=== PATIENT | female | born 1960 ===

== ENCOUNTER 2016-11-05 18:07 | Inpatient (IN) ==
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
[2016-11-05] MEDS ORDERED: ONDANSETRON 4 MG/2 ML VIAL IV PRN (20:22)
[2016-11-05] MEDS ORDERED: ACETAMINOPHEN 325 MG TABLET PO PRN (20:22)
[2016-11-05] MEDS ORDERED: ALBUTEROL 2.5 MG/3 ML NEB RESP TX PRN (20:22)
[2016-11-05] MEDS ORDERED: NIFEdipine 10 MG CAPSULE PO PRN (20:22)
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
[2016-11-05] MEDS: FUROSEMIDE 100 MG/10 ML VIAL IV SCH (22:47)
[2016-11-05] MEDS: CARVEDILOL 12.5 MG TABLET PO SCH (22:47)
[2016-11-06 05:58] LABS: Basophils % 0.4 % (0.0-0.8); Eosinophils # 0.7 10*3/uL (0.0-0.87); Eosinophils % 10.4 % (0.00-10.9); Hematocrit 22.5 VOL% (35.7-47.0); Hemoglobin 7.4 GM/DL (12.0-16.0); Immature Granulocytes % 0.4 %; Immature Granulocytes Absolute 0.03 #; Lymphocytes # 0.9 10*3/uL (1.4-4.0); Lymphocytes % 13.8 % (21.3-54.2); Mean Corpuscular HGB Conc 32.9 GM/DL (32-36); Mean Corpuscular Hemoglobin 30 PG (27-34); Mean Corpuscular Volume 91.1 FL (87-102); Monocytes # 0.4 10*3/uL (0.11-0.8); Monocytes % 6.1 % (1.7-12.7); Neutrophils # 4.7 10*3/uL (1.4-7.4); Neutrophils % 68.9 % (38.7-73.9); Platelet Count 236 T/CUMM (130-400); Red Blood Count 2.47 MC/CUMM (3.8-5.5); White Blood Count 6.8 T/CUMM (4-12)
[2016-11-06 06:33] LABS: Osmolality,Calculated 296.7 MOS/KG (273-304); Potassium 3.9 MMOL/L (3.5-5.1); Troponin I Only 0.026 NG/ML (0.00-0.045)
--- NOTE | 2016-11-06 07:05 | XRay Report ---
XR chest 1V portable Indication: Dyspnea Comparison: 05 November 2016 Findings: The heart and mediastinum are normal in size and configuration. The pulmonary vascularity is normal in caliber. Right midlung and left lower lung pulmonary densities are present similar to previous exam. No other lung infiltrates, effusions, pneumothorax or other abnormality is demonstrated. Impression: No significant changes. PROCEDURE INTERPRETED AT [facility] DEPARTMENT OF RADIOLOGY Final Report Signed by: Dr. Darnell Rodriguez
--- NOTE | 2016-11-06 07:17 | EKG Report ---
Stationary ECG Study [facility] Test Date: 11/06/2016 7:18:31 AM Pat Name: CONRAD SYED Department: Room: 287 Gender: F Supervisor Webbing: GODWIN : 1960 Requested by: Carl Boyd Order Number: [id number] Reading MD: DOMENICA ERNST Intervals Topmost Rate: 73 P: 24 NV: 154 QRS: 1 QRSD: 86 T: 70 QT: 387 QTc: 412 Interpretive Statements SINUS RHYTHM INCOMPLETE RBBB Electronically Signed On 11-06-16 13:01:35 CDT by DOMENICA ERNST [email or web address]
[2016-11-06] MEDS: ENOXAPARIN 30 MG/0.3 ML SYRINGE SUBCUT SCH (08:54)
[2016-11-06] MEDS: PANTOPRAZOLE 40 MG TABLET PO SCH (08:54)
[2016-11-06] MEDS: FUROSEMIDE 100 MG/10 ML VIAL IV SCH ×2 (08:54→17:04)
[2016-11-06] MEDS: amLODIPine 10 MG TABLET PO SCH (08:54)
[2016-11-06] MEDS: INSULIN LISPRO 100 UNIT/ML SUBCUT SCH ×3 (08:54→17:03)
[2016-11-06] MEDS: CARVEDILOL 12.5 MG TABLET PO SCH ×2 (08:54→17:04)
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
[2016-11-06 13:56] LABS: Troponin I Only 0.017 NG/ML (0.00-0.045)
--- NOTE | 2016-11-06 14:41 | Hospitalist Progress Note ---
Assessment and Plan (1) Acute exacerbation of CHF (congestive heart failure) Status: Acute Assessment and plan: Follow-up echo. Cardiology consult noted. Continue Lasix. Nephrology consult pending. Current Visit: No Qualifiers: Congestive heart failure type: diastolic Qualified Code(s): I50.33 - Acute on chronic diastolic (congestive) heart failure (2) Diabetes Status: Chronic Current Visit: Yes Qualifiers: Diabetes mellitus type: type 2 (3) Anemia Status: Chronic Current Visit: No Qualifiers: Anemia type: due to chronic kidney disease Chronic kidney disease stage: stage 3 (moderate) Qualified Code(s): N18.3 - Chronic kidney disease, stage 3 (moderate); D63.1 - Anemia in chronic kidney disease (4) Hypertension Status: Chronic Current Visit: Yes Qualifiers: Hypertension type: essential hypertension Qualified Code(s): I10 - Essential (primary) hypertension (5) Chronic kidney disease (CKD) Status: Acute Assessment and plan: Followed by Dr. Guardado and Dr. Simpson. Nephrotoxic medications are being held with the exception of Lasix. Nephrology consult placed Current Visit: Yes Qualifiers: Chronic kidney disease stage: stage 4 (severe) Qualified Code(s): N18.4 - Chronic kidney disease, stage 4 (severe) (6) Hyperlipidemia Status: Chronic Assessment and plan: Lipid panel in a.m. Current Visit: Yes Qualifiers: Hyperlipidemia type: unspecified Qualified Code(s): E78.5 - Hyperlipidemia , unspecified Hospitalist: Subjective Interval history: Patient seen and examined. No acute events overnight. Case discussed with nursing staff. Labs reviewed. Hightower catheter discontinued. Patient requests to be DNR CODE STATUS. Cardiology consult reviewed. Echo pending. Exam - Constitutional Vitals: Period Temp Pulse Resp BP Sys/Luu Pulse Ox Last 24 Hr 97.1 F-98.9 F 71-82 18-20 106-191/72-91 91-99 Exam: Constitutional System: Mild distress. No tremulousness. Head: Normocephalic, atraumatic. Ears, Nose and Throat System: No pain or tenderness. No epistaxis or discharge Eyes System: Pupils equal, round, and reactive. Extraocular muscles intact. Neck: Supple, without adenopathy, No jugular venous distention. Respiratory System: Chest clear to auscultation. Cardiovascular System: Heart with regular rate and rhythm. No murmur. GI System: Abdomen soft, nontender. Normo active bowel sounds present. Musculoskeletal System: limbs with no pedal edema. Full distal pulses. Neurological System: No discernable sensory deficit. No aphasia Psychiatric System: Conversation is rational Results - Labs CBC & BMP: 11/06/16 05:17 11/06/16 05:17 Lab Results: I have reviewed the past 24 hour labs
[2016-11-06] MEDS: hydrALAZINE 25 MG TABLET PO SCH ×2 (14:42→21:47)
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
[2016-11-06] MEDS ORDERED: SIMVASTATIN 20 MG TABLET PO SCH (21:00)
--- NOTE | 2016-11-06 21:21 | ECHO Report ---
Betsy Talley Exam Date: 11/06/2016 10:05 Referring Physician: Technologist: ruba Boyd ARDMS, RVT Age: 55 Ht (in): 63 Wt (lb): 194 Gender: F Exam Location: [facility] Echo Indications: Heart failure, unspecified, Essential (primary) hypertension, Anemia, Pneumonia, Chronic kidney disease, unspecified BP: 174 / 77 HR: 71 Rhythm: Sinus Technical Quality: Good IMPRESSIONS Normal left ventricular cavity size. Left ventricular ejection fraction is estimated at 60 % . Grade II/IV diastolic dysfunction, moderately elevated filling pressures. The right ventricle is normal in size and function. The right atrium is mildly enlarged. The left atrium is mildly enlarged. Morphologically normal mitral valve. Trace mitral valve regurgitation. Aortic valve sclerosis. Trace aortic valve regurgitation. Severe tricuspid valve regurgitation. PAP60 mmHg. Trace pulmonary valve regurgitation. Normal pericardium without effusion. Normal ascending aorta dimension. MEASUREMENTS (Male / Female) Normal Values 2D ECHO LV Diastolic Diameter PLAX 4.8 cm 4.2 - 5.9 / 3.9 - 5.3 cm LV Systolic Diameter PLAX 3.5 cm LV Fractional Shortening PLAX 28.8 % IVS Diastolic Thickness 1.3 cm 0.6 - 1.0 / 0.6 - 0.9 cm LVPW Diastolic Thickness 1.1 cm 0.6 - 1.0 / 0.6 - 0.9 cm RV Internal Dim ED PLAX 2.8 cm Aortic Root Diameter 3.3 cm LA Systolic Diameter LX 4.2 cm 3.0 - 4.0 / 2.7 - 3.8 cm DOPPLER TR Peak Velocity 349.0 cm/s TR Peak Gradient 48.7 mmHg FINDINGS Left Ventricle Normal left ventricular cavity size. Mild left ventricular hypertrophy. Left ventricular ejection fraction is estimated at 60 % .Grade II/IV diastolic dysfunction, moderately elevated filling pressures. Right Ventricle The right ventricle is normal in size and function. Right Atrium The right atrium is mildly enlarged. Left Atrium The left atrium is mildly enlarged. Mitral Valve Morphologically normal mitral valve. Trace mitral valve regurgitation. Aortic Valve Aortic valve sclerosis. Trace aortic valve regurgitation. Tricuspid Valve Morphologically normal tricuspid valve. Severe tricuspid valve regurgitation. PAP60 mmHg. Pulmonic Valve Morphologically normal pulmonic valve. Trace pulmonary valve regurgitation. Pericardium Normal pericardium without effusion. Aorta Normal ascending aorta dimension. Almas Jd (Electronically Signed) Final Date: 06 November 2016 21:20
[2016-11-06 21:41] LABS: Troponin I Only 0.025 NG/ML (0.00-0.045)
[2016-11-07 05:17] LABS: Basophils % 0.3 % (0.0-0.8); Eosinophils # 0.7 10*3/uL (0.0-0.87); Eosinophils % 9.4 % (0.00-10.9); Hematocrit 22.2 VOL% (35.7-47.0); Hemoglobin 7.3 GM/DL (12.0-16.0); Immature Granulocytes % 0.4 %; Immature Granulocytes Absolute 0.03 #; Lymphocytes # 1.2 10*3/uL (1.4-4.0); Lymphocytes % 16.5 % (21.3-54.2); Mean Corpuscular HGB Conc 32.9 GM/DL (32-36); Mean Corpuscular Hemoglobin 30 PG (27-34); Mean Corpuscular Volume 90.6 FL (87-102); Mean Platelet Volume 10.1 FL (9.6-12.0); Monocytes # 0.5 10*3/uL (0.11-0.8); Monocytes % 6.3 % (1.7-12.7); Neutrophils # 4.8 10*3/uL (1.4-7.4); Neutrophils % 67.1 % (38.7-73.9); Platelet Count 239 T/CUMM (130-400); Red Blood Count 2.45 MC/CUMM (3.8-5.5); Red Cell Distribution Width 14.7 % (9.3-17.3); White Blood Count 7.1 T/CUMM (4-12)
[2016-11-07 05:44] LABS: Calcium 7.9 MG/DL (8.5-10.1); Magnesium 1.9 MG/DL (1.8-2.4); Osmolality,Calculated 298.1 MOS/KG (273-304); Potassium 3.5 MMOL/L (3.5-5.1)
[2016-11-07 05:47] LABS: Risk Ratio 3.22; VLDL CHOLESTEROL 39.6 MG/DL
--- NOTE | 2016-11-07 07:13 | EKG Report ---
Stationary ECG Study [facility] Test Date: 11/07/2016 7:13:53 AM Pat Name: CONRAD SYED Department: Room: 287 Gender: F Hand Sewer: GODWIN : 1960 Requested by: Rukhsana Murry Order Number: [id number] Reading MD: DOMENICA ERNST Intervals [place] Rate: 71 P: 72 MT: 143 QRS: 68 QRSD: 90 T: 73 QT: 404 QTc: 426 Interpretive Statements SINUS RHYTHM POSSIBLE RIGHT VENTRICULAR CONDUCTION DELAY Electronically Signed On 11-09-16 14:06:51 CDT by DOMENICA ERNST [email or web address]
[2016-11-07] MEDS: ENOXAPARIN 30 MG/0.3 ML SYRINGE SUBCUT SCH (08:42)
[2016-11-07] MEDS: PANTOPRAZOLE 40 MG TABLET PO SCH (08:42)
[2016-11-07] MEDS: INSULIN LISPRO 100 UNIT/ML SUBCUT SCH ×2 (08:42→11:59)
[2016-11-07] MEDS: hydrALAZINE 25 MG TABLET PO SCH (08:42)
[2016-11-07] MEDS: CARVEDILOL 12.5 MG TABLET PO SCH (08:42)
[2016-11-07] MEDS: amLODIPine 10 MG TABLET PO SCH (08:42)
[2016-11-07] MEDS: FUROSEMIDE 100 MG/10 ML VIAL IV SCH (09:35)
[2016-11-07 12:09] VITALS: BP 149/74
--- NOTE | 2016-11-07 12:10 | Cardiology Progress Note ---
<Rukhsana Murry - Last Filed: 11/07/16 11:57> Assessment and Plan (1) Acute exacerbation of CHF (congestive heart failure) Status: Acute Assessment and plan: See plan of care listed below. Current Visit: No Qualifiers: Congestive heart failure type: diastolic Qualified Code(s): I50.33 - Acute on chronic diastolic (congestive) heart failure (2) Anemia Status: Chronic Assessment and plan: See plan of care listed below. Current Visit: No Qualifiers: Anemia type: due to chronic kidney disease Chronic kidney disease stage: stage 3 (moderate) Qualified Code(s): N18.3 - Chronic kidney disease, stage 3 (moderate); D63.1 - Anemia in chronic kidney disease (3) Chest pain Status: Acute Assessment and plan: See plan of care listed below. Current Visit: Yes (4) Constipation Status: Chronic Assessment and plan: See plan of care listed below. Current Visit: No (5) Diabetes Status: Chronic Assessment and plan: See plan of care listed below. Current Visit: Yes Qualifiers: Diabetes mellitus type: type 2 (6) Hypertension Status: Chronic Assessment and plan: See plan of care listed below. Current Visit: Yes Qualifiers: Hypertension type: essential hypertension Qualified Code(s): I10 - Essential (primary) hypertension (7) Chronic kidney disease (CKD) Status: Acute Assessment and plan: See plan of care listed below. Current Visit: Yes Qualifiers: Chronic kidney disease stage: stage 4 (severe) Qualified Code(s): N18.4 - Chronic kidney disease, stage 4 (severe) (8) Hyperlipidemia Status: Chronic Assessment and plan: See plan of care listed below. 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 Miles SUMMARY Ms. Talley is a 55 year old female without known history of coronary artery disease, not routinely followed by cardiology. Patient has cardiac risk factors significant for hypertension, hyperlipidemia, diabetes, obesity and sedentary lifestyle. She is a history of congestive heart failure, obstructive sleep apnea(untreated), chronic kidney disease (followed by Dr. Simpson) and chronic anemia. Patient's most recent echocardiogram was performed January 2016. At that time, she had normal ejection fraction of 60% with grade 2 diastolic dysfunction. PAP 45. Patient underwent cardiac stress testing February 2011 which was normal without good evidence to suggest myocardial scar or ischemia. EF 54% with normal regional wall motion. Patient was last seen by cardiology January 2016 for atypical chest pain. She was scheduled for outpatient stress testing. However, she did not show for this procedure. Patient was transferred from [facility] for further evaluation of dyspnea on exertion and elevated BNP. She has been admitted under hospitalist service and is being treated for acute congestive heart failure. Echocardiogram revealed left ventricular ejection fraction of 60%. Grade 2 diastolic dysfunction. Severe TR, PAP 60 mmHg. NOVEMBER 07, 2016 Patient was seen and examined on the telemetry unit. She has greatly improved overnight after being diuresed. Denies complaints of chest pain, heaviness and tightness. According to her I's and O's, her weight is unchanged. We will continue to diurese heavily. Monitor her renal function closely as she has stage IV chronic kidney disease. Creatinine today 4.5. The pressure continues to be suboptimally controlled. Will adjust her medications. Echocardiogram revealed left ventricular ejection fraction of 60%. Grade 2 diastolic dysfunction. Severe TR, PAP 60 mmHg. Labs have been reviewed. I will discuss with Dr. Miles and await his additional recommendations. ASSESSMENT/PLAN 1. ACUTE CONGESTIVE HEART FAILURE, DIASTOLIC DYSFUNCTION - Multifactorial to include diastolic dysfunction and chronic kidney disease. Echocardiogram revealed left ventricular ejection fraction of 60%. Grade 2 diastolic dysfunction. Severe TR, PAP 60 mmHg. We will continue with IV diuresis. Diuresing well. Weight is unchanged. Strict I's and O's and daily weights. Will monitor renal function closely while diuresing. Renal is following. Patient without anginal symptoms. Troponin has been negative 3. I will discuss with Dr. Miles and await his additional recommendations. 2. HYPERTENSION - Patient's blood pressure continues to be suboptimally controlled. Will adjust her medications. 3. HYPERLIPIDEMIA - Will reinitiate her lipid-lowering agent. Lipid panel reviewed. 4. DIABETES - Management per attending. 5. CHRONIC KIDNEY DISEASE, STAGE IV - Creatinine 4.5. Patient was taken ARB at home. This is been discontinued. Dr. Simpson has been consulted. Appreciate his recommendations. 6. CHRONIC ANEMIA - Most likely secondary to patient's chronic kidney disease. H&H is holding at 7.3 and 22.2. May benefit from blood transmission. No overt bleeding. Stool samples pending. Will defer management of this to attending/Renal. 7. TAD - Dr. Cortez following. Exam (Progress Note) - Constitutional Vitals: Period Temp Pulse Resp BP Sys/Luu Pulse Ox Last 24 Hr 97.4 F-98.7 F 69-79 16-20 108-191/53-88 94-98 Exam: General: Appears well with no apparent distress. Pleasant and cooperative. Appears comfortable. HEENT: PERRL, normocephalic, atraumatic. Mucous membranes moist. No jaundice noted. Conjunctiva moist and clear, sclerae anicteric Neck: No JVD/HJR, no thyromegaly or lymphadenopathy noted. No carotid bruit appreciated Cardiac: Regular rate and rhythm. Soft systolic murmur. Lungs: Clear throughout. Oxygen via nasal cannula. Abdomen: Soft, bowel sounds normoactive. Nontender. No abdominal bruit or thrill noted. No masses noted. Extremities: No clubbing, cyanosis noted. Trace edema to lower extremities. Upper extremity pulses 2+. Lower extremity pulses 2+. Capillary refill less than 3 seconds. Skin: No unusual lesions or rashes. No skin breakdown appreciated. Neuro: Awake, alert and oriented 3. Moves all extremities well without hemiparesis or paralysis. No essential tremor is appreciated. Result/EKG - Labs CBC & BMP: 11/07/16 04:52 11/07/16 04:53 Lab Results: I have reviewed the past 24 hour labs Labs: Laboratory Results - last 24 hr 11/06/16 11/06/16 11/06/16 13:10 15:32 19:50 WBC RBC Hgb Hct MCV MCH MCHC RDW Plt Count MPV Neut % (Auto) Lymph % (Auto) [place] % (Auto) Eos % (Auto) Baso % (Auto) Neut # (Auto) Lymph # (Auto) [place] # (Auto) Eos # (Auto) Baso # (Auto) Immature Gran % Nucleated RBC % Immature Gran # Nucleated RBCs # Sodium Potassium Chloride Carbon Dioxide Anion Gap BUN Creatinine GFR Calculation BUN/Creatinine Ratio Glucose POC Glucose 197 H 214 H Calculated Osmolality Calcium Magnesium Total Creatine Kinase 125 CK-MB (CK-2) 2.3 Troponin I 0.017 Triglycerides Cholesterol LDL Cholesterol VLDL Cholesterol HDL Cholesterol Heart Disease Risk Ratio 11/06/16 11/07/16 11/07/16 21:05 04:52 04:52 WBC 7.1 RBC 2.45 L Hgb 7.3 L Hct 22.2 L MCV 90.6 MCH 30 MCHC 32.9 RDW 14.7 Plt Count 239 MPV 10.1 Neut % (Auto) 67.1 Lymph % (Auto) 16.5 L [place] % (Auto) 6.3 Eos % (Auto) 9.4 Baso % (Auto) 0.3 Neut # (Auto) 4.8 Lymph # (Auto) 1.2 L [place] # (Auto) 0.5 Eos # (Auto) 0.7 Baso # (Auto) 0.0 Immature Gran % 0.4 Nucleated RBC % 0.0 Immature Gran # 0.03 Nucleated RBCs # 0.00 Sodium Potassium Chloride Carbon Dioxide Anion Gap BUN Creatinine GFR Calculation BUN/Creatinine Ratio Glucose POC Glucose Calculated Osmolality Calcium Magnesium Total Creatine Kinase 116 CK-MB (CK-2) 1.9 Troponin I 0.025 Triglycerides 198 H Cholesterol 148 LDL Cholesterol 79.0 VLDL Cholesterol 39.6 HDL Cholesterol 46 Heart Disease Risk Ratio 3.22 11/07/16 11/07/16 04:53 07:34 WBC RBC Hgb Hct MCV MCH MCHC RDW Plt Count MPV Neut % (Auto) Lymph % (Auto) [place] % (Auto) Eos % (Auto) Baso % (Auto) Neut # (Auto) Lymph # (Auto) [place] # (Auto) Eos # (Auto) Baso # (Auto) Immature Gran % Nucleated RBC % Immature Gran # Nucleated RBCs # Sodium 142 Potassium 3.5 Chloride 107 Carbon Dioxide 24 Anion Gap 14.5 BUN 46 H Creatinine 4.50 H GFR Calculation 11 BUN/Creatinine Ratio 10.00 Glucose 178 H POC Glucose 191 H Calculated Osmolality 298.1 Calcium 7.9 L Magnesium 1.9 Total Creatine Kinase CK-MB (CK-2) Troponin I Triglycerides Cholesterol LDL Cholesterol VLDL Cholesterol HDL Cholesterol Heart Disease Risk Ratio Specialty Discharge - Follow Up or Referrals Follow up with: David Guardado Jr., MD [Physician] - 2 Weeks Adi Miles MD [Physician] - 1 Week (In 1-2 weeks with CBC, BMP and EKG.) <Adi Miles - Last Filed: 11/07/16 14:35> Cardiology - PN: Subj Interval history: Cardiology addendum Patient examined and chart reviewed. Telemetry shows sinus rhythm. Blood pressure 146/82 Regular rhythm no murmur or gallop Decreased breath sounds few rhonchi in the right base Abdomen benign Lab data today sodium 142 potassium 3.5 chloride 107 CO2 24 BUN 46 creatinine 4.50 Echo shows ejection fraction of 60% with moderate dilated left atrium, aortic valve sclerosis, severe TR PA pressure 60 with no effusion Plan CPAP has been restarted. Follow with Dr. Simpson as scheduled No MAHIN or ARB Exam (Progress Note) - Constitutional Vitals: Period Temp Pulse Resp BP Sys/Luu Pulse Ox Last 24 Hr 97.6 F-98.7 F 69-79 16-20 108-183/53-81 94-98 Result/EKG - Labs CBC & BMP: 11/07/16 04:52 11/07/16 04:53 Labs: Laboratory Results - last 24 hr 11/06/16 11/06/16 11/06/16 15:32 19:50 21:05 WBC RBC Hgb Hct MCV MCH MCHC RDW Plt Count MPV Neut % (Auto) Lymph % (Auto) [place] % (Auto) Eos % (Auto) Baso % (Auto) Neut # (Auto) Lymph # (Auto) [place] # (Auto) Eos # (Auto) Baso # (Auto) Immature Gran % Nucleated RBC % Immature Gran # Nucleated RBCs # Sodium Potassium Chloride Carbon Dioxide Anion Gap BUN Creatinine GFR Calculation BUN/Creatinine Ratio Glucose POC Glucose 197 H 214 H Calculated Osmolality Calcium Magnesium Total Creatine Kinase 116 CK-MB (CK-2) 1.9 Troponin I 0.025 Triglycerides Cholesterol LDL Cholesterol VLDL Cholesterol HDL Cholesterol Heart Disease Risk Ratio 11/07/16 11/07/16 11/07/16 04:52 04:52 04:53 WBC 7.1 RBC 2.45 L Hgb 7.3 L Hct 22.2 L MCV 90.6 MCH 30 MCHC 32.9 RDW 14.7 Plt Count 239 MPV 10.1 Neut % (Auto) 67.1 Lymph % (Auto) 16.5 L [place] % (Auto) 6.3 Eos % (Auto) 9.4 Baso % (Auto) 0.3 Neut # (Auto) 4.8 Lymph # (Auto) 1.2 L [place] # (Auto) 0.5 Eos # (Auto) 0.7 Baso # (Auto) 0.0 Immature Gran % 0.4 Nucleated RBC % 0.0 Immature Gran # 0.03 Nucleated RBCs # 0.00 Sodium 142 Potassium 3.5 Chloride 107 Carbon Dioxide 24 Anion Gap 14.5 BUN 46 H Creatinine 4.50 H GFR Calculation 11 BUN/Creatinine Ratio 10.00 Glucose 178 H POC Glucose Calculated Osmolality 298.1 Calcium 7.9 L Magnesium 1.9 Total Creatine Kinase CK-MB (CK-2) Troponin I Triglycerides 198 H Cholesterol 148 LDL Cholesterol 79.0 VLDL Cholesterol 39.6 HDL Cholesterol 46 Heart Disease Risk Ratio 3.22 11/07/16 11/07/16 07:34 11:27 WBC RBC Hgb Hct MCV MCH MCHC RDW Plt Count MPV Neut % (Auto) Lymph % (Auto) [place] % (Auto) Eos % (Auto) Baso % (Auto) Neut # (Auto) Lymph # (Auto) [place] # (Auto) Eos # (Auto) Baso # (Auto) Immature Gran % Nucleated RBC % Immature Gran # Nucleated RBCs # Sodium Potassium Chloride Carbon Dioxide Anion Gap BUN Creatinine GFR Calculation BUN/Creatinine Ratio Glucose POC Glucose 191 H 189 H Calculated Osmolality Calcium Magnesium Total Creatine Kinase CK-MB (CK-2) Troponin I Triglycerides Cholesterol LDL Cholesterol VLDL Cholesterol HDL Cholesterol Heart Disease Risk Ratio
--- NOTE | 2016-11-07 12:13 | Sleep Medicine Progress Note ---
Assessment and Plan (1) Obstructive sleep apnea (adult) (pediatric) Status: Acute Assessment and plan: Ms. Talley's CPAP download from the device used last night shows an average of 5 hours and 14 minutes. Her AHI is 5.0 while on CPAP pressure ranging from 5- 20 cm. As she will be discharged later today, I will prescribe a CPAP device as well as needed supplies and sent it to [facility] in [place], [place]. She will need to follow-up at the [facility] sleep clinic after she has been on CPAP therapy for 6 weeks to assess her response. She verbalized understanding and wishes to proceed. Current Visit: Yes Sleep Medicine Subjective Interval history: Ms. Talley is a positive history of mild obstructive sleep apnea with her last sleep study showing an AHI of 6.6 along with oxygen desaturations as low as 77% . This was done in March 2015. She was unable to achieve compliance with CPAP therapy and ultimately returned her device to the [facility] provider. She was seen as a hospital consult yesterday after admission with acute congestive heart failure. After reviewing risk and benefits of treatment of her underlying sleep apnea, she agreed to try CPAP therapy again. Last night, I ordered an auto titration with a pressure ranging from 5-20 cm. She states that she tolerated CPAP "okay" but is still sleepy this morning. She states she did not sleep well in the hospital last night. She hopes to go home later today. Exam (Progress Note) - Constitutional Vitals: Period Temp Pulse Resp BP Sys/Luu Pulse Ox Last 24 Hr 97.6 F-98.7 F 69-79 16-20 108-183/53-81 94-98 General appearance: over weight - Head Head exam: Present: normocephalic, atraumatic - Respiratory Respiratory exam: Present: clear to auscultation bilaterally - Cardiovascular Cardiovascular exam: Present: regular rate and rhythm - GI/Abdominal GI/Abdominal exam: Present: normal bowel sounds. Absent: tenderness - Neurological Exam Neurological exam: Present: oriented X3 - Psychiatric Psychiatric exam: Present: normal affect, normal mood - Skin Skin exam: Present: warm, dry Results - Labs CBC & BMP: 11/07/16 04:52 11/07/16 04:53
--- NOTE | 2016-11-07 14:07 | Discharge Summary ---
Hospital Course - Hospital Course Hospital Course: Ms. Talley is a 55 year old female without known history of coronary artery disease, not routinely followed by cardiology. Patient has cardiac risk factors significant for hypertension, hyperlipidemia, diabetes, obesity and sedentary lifestyle. She is a history of congestive heart failure, obstructive sleep apnea(untreated), chronic kidney disease (followed by Dr. Simpson) and chronic anemia. Patient's most recent echocardiogram was performed January 2016. At that time, she had normal ejection fraction of 60% with grade 2 diastolic dysfunction. PAP 45. Patient underwent cardiac stress testing February 2011 which was normal without good evidence to suggest myocardial scar or ischemia. EF 54% with normal regional wall motion. Patient was last seen by cardiology January 2016 for atypical chest pain. She was scheduled for outpatient stress testing. However, she did not show for this procedure. Patient was transferred from [facility] for further evaluation of dyspnea on exertion and elevated BNP. She has been admitted under hospitalist service and is being treated for acute congestive heart failure. Echocardiogram revealed left ventricular ejection fraction of 60%. Grade 2 diastolic dysfunction. Severe TR, PAP 60 mmHg. NOVEMBER 07, 2016 Patient was seen and examined on the telemetry unit. She has greatly improved overnight after being diuresed. Denies complaints of chest pain, heaviness and tightness. According to her I's and O's, her weight is unchanged. We will continue to diurese heavily. Monitor her renal function closely as she has stage IV chronic kidney disease. Creatinine today 4.5. The pressure continues to be suboptimally controlled. Will adjust her medications. Echocardiogram revealed left ventricular ejection fraction of 60%. Grade 2 diastolic dysfunction. Severe TR, PAP 60 mmHg. Labs have been reviewed. ASSESSMENT/PLAN 1. ACUTE CONGESTIVE HEART FAILURE, DIASTOLIC DYSFUNCTION - Multifactorial to include diastolic dysfunction and chronic kidney disease. Echocardiogram revealed left ventricular ejection fraction of 60%. Grade 2 diastolic dysfunction. Severe TR, PAP 60 mmHg. We will continue with IV diuresis. Diuresing well. Weight is unchanged. Strict I's and O's and daily weights. Will monitor renal function closely while diuresing. Renal is following. Patient without anginal symptoms. Troponin has been negative 3. I will discuss with Dr. Miles and await his additional recommendations. 2. HYPERTENSION - Patient's blood pressure continues to be suboptimally controlled. Will adjust her medications. 3. HYPERLIPIDEMIA - Will reinitiate her lipid-lowering agent. Lipid panel reviewed. 4. DIABETES - Management per attending. 5. CHRONIC KIDNEY DISEASE, STAGE IV - Creatinine 4.5. Patient was taken ARB at home. This is been discontinued. 6. CHRONIC ANEMIA - Most likely secondary to patient's chronic kidney disease. H&H is holding at 7.3 and 22.2. May benefit from blood transfusion. No overt bleeding. Stool samples pending. 7. TAD - Dr. Cortez following. - Time spent with patient Time with patient DS: Greater than 30 minutes (Total discharge time for this patient, including [id number] time, clinical documentation, medication reconciliation, and discharge planning was 42 minutes.) Diagnosis - Discharge Diagnosis (1) Acute exacerbation of CHF (congestive heart failure) Status: Acute (2) Diabetes Status: Chronic (3) Anemia Status: Chronic (4) Hypertension Status: Chronic (5) Chronic kidney disease (CKD) Status: Chronic (6) Hyperlipidemia Status: Chronic Specialty Discharge - Follow Up or Referrals Follow up with: Adi Miles MD [Physician] - 1 Week (In 1-2 weeks with CBC, BMP and EKG.) Discharge Plan - Discharge Data Disposition: Disch To Home/Self Care Condition at Discharge: Stable Discharge Diet: diabetic diet Activity: resume usual activities as tolerated Hygiene: no restrictions Weight Bearing at Discharge: full weight bearing Contact your physician if you experience:: fever over 101, Nausea/Vomiting, Shortness of breath - Discharge Medications New Epoetin Richie [Epogen] 10,000 unit SUBCUT [id number] vial hydrALAZINE TAB [Apresoline Tab] 50 mg PO TID #90 tablet Carvedilol [Coreg] 12.5 mg PO BID W/MEALS #60 tablet Continue Gabapentin 300 mg PO TID amLODIPine [Norvasc] 10 mg PO DAILY #30 tablet Albuterol Neb [Proventil Neb] 1 vial INH QID PRN PRN Reason: Wheezing Simvastatin 20 mg PO BEDTIME Bisacodyl Tab [Dulcolax Tab] 10 mg PO BEDTIME PRN PRN Reason: Constipation Glimepiride 1 mg PO BID Insulin Aspart [NovoLOG FlexPen] 5 unit SUBCUT TID Polyethylene Glycol Powder [Miralax] 17 gm PO DAILY powder Mometasone/Formoterol 200-5 [Dulera 200-5] 2 puffs INH BID #1 inhaler Pantoprazole Tab [Protonix Tab] 40 mg PO DAILY #30 tablet Insulin Detemir [Levemir FlexPen] 50 units SUBCUT BEDTIME PRN PRN Reason: Blood Pressure-Increased Sennosides/Docusate Sodium [Docusate Sodium-Senna Tablet] 2 tablet PO BID Discontinued Carvedilol 12.5 mg PO BID #120 tablet Levofloxacin Tab [Levaquin Tab] 750 mg PO DAILY #7 tablet Losartan Potassium [Cozaar] 100 mg PO DAILY #30 tablet - Follow Up or Referral Follow Up: Adi Miles MD [Physician] - 1 Week (In 1-2 weeks with CBC, BMP and EKG.) David Guardado Jr., MD [Physician] - 2 Weeks - Forms/Instructions Exam - Constitutional Vitals: Period Temp Pulse Resp BP Sys/Luu Pulse Ox Last 24 Hr 97.6 F-98.7 F 69-79 16-20 108-183/53-81 94-98 Discharge Results Procedures and tests throughout hospitalization: Pending Orders 11/08/16 04:00 BMP w/ Mg [Basic Metabolic Panel w/Mg] IN AM BNP [B-Type Natriuretic Peptide] IN AM CBC [Comp Blood Count Auto Diff] IN AM Labs on day of discharge: Labs from last 24 hours 11/07/16 11/07/16 11/07/16 11:27 07:34 04:53 WBC RBC Hgb Hct MCV MCH MCHC RDW Plt Count MPV Neut % (Auto) Lymph % (Auto) [place] % (Auto) Eos % (Auto) Baso % (Auto) Neut # (Auto) Lymph # (Auto) [place] # (Auto) Eos # (Auto) Baso # (Auto) Immature Gran % Nucleated RBC % Immature Gran # Nucleated RBCs # Sodium 142 Potassium 3.5 Chloride 107 Carbon Dioxide 24 Anion Gap 14.5 BUN 46 H Creatinine 4.50 H GFR Calculation 11 BUN/Creatinine Ratio 10.00 Glucose 178 H POC Glucose 189 H 191 H Calculated Osmolality 298.1 Calcium 7.9 L Magnesium 1.9 Total Creatine Kinase CK-MB (CK-2) Troponin I Triglycerides Cholesterol LDL Cholesterol VLDL Cholesterol HDL Cholesterol Heart Disease Risk Ratio 11/07/16 11/07/16 11/06/16 04:52 04:52 21:05 WBC 7.1 RBC 2.45 L Hgb 7.3 L Hct 22.2 L MCV 90.6 MCH 30 MCHC 32.9 RDW 14.7 Plt Count 239 MPV 10.1 Neut % (Auto) 67.1 Lymph % (Auto) 16.5 L [place] % (Auto) 6.3 Eos % (Auto) 9.4 Baso % (Auto) 0.3 Neut # (Auto) 4.8 Lymph # (Auto) 1.2 L [place] # (Auto) 0.5 Eos # (Auto) 0.7 Baso # (Auto) 0.0 Immature Gran % 0.4 Nucleated RBC % 0.0 Immature Gran # 0.03 Nucleated RBCs # 0.00 Sodium Potassium Chloride Carbon Dioxide Anion Gap BUN Creatinine GFR Calculation BUN/Creatinine Ratio Glucose POC Glucose Calculated Osmolality Calcium Magnesium Total Creatine Kinase 116 CK-MB (CK-2) 1.9 Troponin I 0.025 Triglycerides 198 H Cholesterol 148 LDL Cholesterol 79.0 VLDL Cholesterol 39.6 HDL Cholesterol 46 Heart Disease Risk Ratio 3.22 11/06/16 11/06/16 19:50 15:32 WBC RBC Hgb Hct MCV MCH MCHC RDW Plt Count MPV Neut % (Auto) Lymph % (Auto) [place] % (Auto) Eos % (Auto) Baso % (Auto) Neut # (Auto) Lymph # (Auto) [place] # (Auto) Eos # (Auto) Baso # (Auto) Immature Gran % Nucleated RBC % Immature Gran # Nucleated RBCs # Sodium Potassium Chloride Carbon Dioxide Anion Gap BUN Creatinine GFR Calculation BUN/Creatinine Ratio Glucose POC Glucose 214 H 197 H Calculated Osmolality Calcium Magnesium Total Creatine Kinase CK-MB (CK-2) Troponin I Triglycerides Cholesterol LDL Cholesterol VLDL Cholesterol HDL Cholesterol Heart Disease Risk Ratio DS: Provider Date of admission: 11/05/16 19:20 Primary care physician: Gwendolyn Briceno MD Attending physician on admission: Bindu Munoz MD Consults: 11/05/16 20:22 Consult to Physician [CONS] Routine Comment: chf Consulting Provider: Refugio Ram Person Notified: Corbin Date Notified: 11/06/16 Time Notified: 07:40 Consult to Physician [CONS] Routine Comment: ckd Consulting Provider: Mickey Simpson 11/06/16 02:40 Consult to Pastoral Services [CONS] Routine Comment: Pastoral Screen: Request Awning Spreader Visit Pastoral Screen Source of Request: Patient 11/06/16 12:56 Consult to Sleep Center [CONS] Routine Reason for Sleep Center: Sleep Center Physician Consult Comment: eval for tad Discharging clinician: Derrick Mireles MD Expected date of discharge: 11/07/16
[2016-11-08] MEDS ORDERED: EPOETIN ALFA 10,000 UNIT/1 ML VIAL SUBCUT SCH (09:00)
== END 2016-11-07 16:11 | disposition home or self-care (01) | DRG 291 ==
LOC: EDUNIT# → EDSEX → EDBD → N.ED 18:07 → SUATTDRO 19:20 → N.EDINP 19:20 → N.TELEN 20:05
PROVIDERS: ADMIT Internal Medicine; ATTEND Family Medicine

== ENCOUNTER 2017-08-14 17:55 | Inpatient (IN) ==
[2017-08-14] MEDS ORDERED: ACETAMINOPHEN 325 MG TABLET PO PRN (20:57)
[2017-08-14] MEDS ORDERED: ONDANSETRON 4 MG/2 ML VIAL IV PRN (20:57)
[2017-08-14] MEDS ORDERED: MAGNESIUM SULF RIDER 4 GM in PREMIX 1 EACH IV PRN (20:57)
[2017-08-14] MEDS ORDERED: MAGNESIUM SULF RIDER 2 GM in PREMIX 1 EACH IV PRN (20:57)
[2017-08-14] MEDS ORDERED: GLUCAGON 1 MG VIAL IM PRN ×2 (20:57)
[2017-08-14] MEDS ORDERED: ZALEPLON 5 MG CAPSULE PO PRN (20:57)
[2017-08-14] MEDS ORDERED: DEXTROSE 50% 25 GM/50 ML VIAL IV PRN ×2 (20:57)
[2017-08-14] MEDS: LEVOFLOXACIN INJ 500 MG in PREMIX 1 EACH IV SCH (23:23)
[2017-08-14] MEDS: ENOXAPARIN 30 MG/0.3 ML SYRINGE SUBCUT SCH (23:23)
[2017-08-14] MEDS: guaiFENesin/DM ER 600-30 MG TABLET PO SCH (23:23)
[2017-08-14] MEDS: INSULIN REGULAR 100 UNIT/ML SUBCUT SCH (23:23)
[2017-08-15] MEDS: ALBUTEROL/IPRATROPIUM 3 ML NEB RESP TX SCH ×4 (02:15→21:20)
[2017-08-15 05:57] LABS: Basophils % 0.2 % (0.0-0.8); Eosinophils % 0.2 % (0.00-10.9); Hematocrit 22.9 VOL% (35.7-47.0); Hemoglobin 7.5 GM/DL (12.0-16.0); Immature Granulocytes % 1.2 %; Immature Granulocytes Absolute 0.07 #; Lymphocytes # 0.5 10*3/uL (1.4-4.0); Lymphocytes % 8.9 % (21.3-54.2); Mean Corpuscular HGB Conc 32.8 GM/DL (32-36); Mean Corpuscular Hemoglobin 32 PG (27-34); Mean Corpuscular Volume 96.6 FL (87-102); Mean Platelet Volume 10.7 FL (9.6-12.0); Monocytes # 0.5 10*3/uL (0.11-0.8); Monocytes % 9.1 % (1.7-12.7); Neutrophils # 4.8 10*3/uL (1.4-7.4); Neutrophils % 80.4 % (38.7-73.9); Platelet Count 155 T/CUMM (130-400); Red Blood Count 2.37 MC/CUMM (3.8-5.5); Red Cell Distribution Width 15.3 % (9.3-17.3)
[2017-08-15 06:33] LABS: Albumin 2.3 G/DL (3.4-5.0); Bilirubin,Total 0.4 MG/DL (0.2-1.0); Calcium 7.3 MG/DL (8.5-10.1); Potassium 4.4 MMOL/L (3.5-5.1); Total Protein 5.4 G/DL (6.4-8.3)
[2017-08-15] MEDS ORDERED: FUROSEMIDE 40 MG/4 ML VIAL IV SCH (08:00)
[2017-08-15] MEDS: INSULIN REGULAR 100 UNIT/ML SUBCUT SCH ×4 (08:19→20:31)
[2017-08-15] MEDS: guaiFENesin/DM ER 600-30 MG TABLET PO SCH ×2 (09:01→20:30)
[2017-08-15] MEDS ORDERED: INSULIN GLARGINE 100 UNIT/ML SUBCUT PRN (10:26)
[2017-08-15 11:50] LABS: Apearance,Urine CLOUDY (Clear); Bilirubin,Urine Negative (Negative); Blood, Urine Moderate mg/dL (Negative); Glucose,Urine (UA) 150 mg/dL (Negative); Ketones,Urine Negative (Negative); Mucus,Urine Occasional /LPF (Occasional); Nitrite,Urine Negative (Negative); Protein,Urine >=500 MG/DL; RBC,Urine 11 /HPF (0-4); Squamous Epithelial Cell,Urine Occasional /HPF (0-10); Urine Color Yellow (Yellow); Urine Specific Gravity 1.011 (1.001-1.035); Urine Urobilinogen < 2.0 EU/DL (0.2-1.0); WBC,Urine 35 /HPF (0-6)
[2017-08-15] MEDS: methylPREDNISolone SOD SUC 40 MG/1 ML VIAL IV SCH ×2 (11:59→22:21)
[2017-08-15] MEDS: metOLazone 5 MG TABLET PO SCH (14:49)
[2017-08-15] MEDS ORDERED: EPOETIN ALFA 10,000 UNIT/1 ML VIAL SUBCUT ONE (15:00)
[2017-08-15] MEDS: INSULIN LISPRO 100 UNIT/ML SUBCUT SCH ×2 (15:47→20:31)
[2017-08-15] MEDS: FUROSEMIDE 100 MG/10 ML VIAL IV SCH (15:57)
[2017-08-15] MEDS ORDERED: hydrALAZINE 20 MG/1 ML VIAL IV ONE (16:22)
[2017-08-15] MEDS: SIMVASTATIN 20 MG TABLET PO SCH (20:30)
[2017-08-15] MEDS: GLIMEPIRIDE 2 MG TABLET PO SCH (20:30)
[2017-08-15] MEDS: ENOXAPARIN 30 MG/0.3 ML SYRINGE SUBCUT SCH (20:30)
[2017-08-15] MEDS: DOCUSATE/SENNA 50-8.6 MG TABLET PO SCH (20:30)
[2017-08-15] MEDS: CARVEDILOL 6.25 MG TABLET PO SCH (20:30)
[2017-08-15] MEDS: MOMETASONE/FORMOTEROL 200-5 INHALER 8.8 GM INH SCH (20:31)
[2017-08-16] MEDS: ALBUTEROL/IPRATROPIUM 3 ML NEB RESP TX SCH ×4 (02:10→19:36)
[2017-08-16 05:32] LABS: Hematocrit 22.3 VOL% (35.7-47.0); Immature Granulocytes % 1.4 %; Immature Granulocytes Absolute 0.07 #; Lymphocytes # 0.4 10*3/uL (1.4-4.0); Mean Corpuscular HGB Conc 31.4 GM/DL (32-36); Mean Corpuscular Hemoglobin 30 PG (27-34); Mean Corpuscular Volume 96.5 FL (87-102); Mean Platelet Volume 10.8 FL (9.6-12.0); Monocytes # 0.1 10*3/uL (0.11-0.8); Neutrophils # 4.6 10*3/uL (1.4-7.4); Neutrophils % 89.6 % (38.7-73.9); Platelet Count 145 T/CUMM (130-400); Red Blood Count 2.31 MC/CUMM (3.8-5.5); Red Cell Distribution Width 15.1 % (9.3-17.3); White Blood Count 5.1 T/CUMM (4-12)
[2017-08-16 06:07] LABS: Albumin 2.3 G/DL (3.4-5.0); Bilirubin,Total 0.5 MG/DL (0.2-1.0); Calcium 7.4 MG/DL (8.5-10.1); Osmolality,Calculated 313.1 MOS/KG (273-304); Potassium 4.9 MMOL/L (3.5-5.1); Total Protein 5.8 G/DL (6.4-8.3)
[2017-08-16 06:10] LABS: % Iron Saturation 15.7 % (18-50)
[2017-08-16 07:34] LABS: Hepatitis A Ab IgM Quant 0.37 Index; Hepatitis A Ab IgM Result Negative (Negative); Hepatitis B Core IgM Quant 0.18 Index; Hepatitis B Core IgM Result Negative (Negative); Hepatitis B Surface Ag Quant < 0.10 Index; Hepatitis B Surface Ag Result Negative (Negative); Hepatitis C Virus Ab Quant 0.14 Index; Hepatitis C Virus Ab Result Negative (Negative)
[2017-08-16] MEDS: INSULIN REGULAR 100 UNIT/ML SUBCUT SCH ×4 (08:09→21:16)
[2017-08-16] MEDS: INSULIN LISPRO 100 UNIT/ML SUBCUT SCH ×3 (08:42→21:17)
[2017-08-16] MEDS: CETIRIZINE 10 MG TABLET PO SCH (08:43)
[2017-08-16] MEDS: metOLazone 5 MG TABLET PO SCH (08:43)
[2017-08-16] MEDS: guaiFENesin/DM ER 600-30 MG TABLET PO SCH ×2 (08:43→21:16)
[2017-08-16] MEDS: PANTOPRAZOLE 40 MG TABLET PO SCH (08:44)
[2017-08-16] MEDS: GLIMEPIRIDE 2 MG TABLET PO SCH ×2 (08:44→21:15)
[2017-08-16] MEDS: DOCUSATE/SENNA 50-8.6 MG TABLET PO SCH ×2 (08:44→21:18)
[2017-08-16] MEDS: CARVEDILOL 6.25 MG TABLET PO SCH ×2 (08:44→21:16)
[2017-08-16] MEDS: MOMETASONE/FORMOTEROL 200-5 INHALER 8.8 GM INH SCH ×2 (08:44→21:17)
[2017-08-16] MEDS: FUROSEMIDE 100 MG/10 ML VIAL IV SCH ×2 (08:46→17:05)
[2017-08-16] MEDS: methylPREDNISolone SOD SUC 40 MG/1 ML VIAL IV SCH ×2 (11:55→21:15)
[2017-08-16] MEDS: NYSTATIN 500,000 UNIT/5 ML UDCUP SWISH/SWAL SCH ×3 (13:30→21:15)
[2017-08-16] MEDS: ENOXAPARIN 30 MG/0.3 ML SYRINGE SUBCUT SCH (21:14)
[2017-08-16] MEDS: LEVOFLOXACIN INJ 500 MG in PREMIX 1 EACH IV SCH (21:14)
[2017-08-16] MEDS: SIMVASTATIN 20 MG TABLET PO SCH (21:16)
[2017-08-17] MEDS: ALBUTEROL/IPRATROPIUM 3 ML NEB RESP TX SCH ×4 (00:23→19:44)
[2017-08-17 05:46] LABS: Hematocrit 23.1 VOL% (35.7-47.0); Hemoglobin 7.3 GM/DL (12.0-16.0); Immature Granulocytes % 1.6 %; Immature Granulocytes Absolute 0.12 #; Lymphocytes # 0.5 10*3/uL (1.4-4.0); Lymphocytes % 6.4 % (21.3-54.2); Mean Corpuscular HGB Conc 31.6 GM/DL (32-36); Mean Corpuscular Hemoglobin 32 PG (27-34); Mean Platelet Volume 11.5 FL (9.6-12.0); Monocytes # 0.2 10*3/uL (0.11-0.8); Monocytes % 2.2 % (1.7-12.7); NRBC # 0.02 10*3/uL; Neutrophils # 6.6 10*3/uL (1.4-7.4); Neutrophils % 89.8 % (38.7-73.9); Platelet Count 155 T/CUMM (130-400); Red Blood Count 2.31 MC/CUMM (3.8-5.5); Red Cell Distribution Width 15.2 % (9.3-17.3); White Blood Count 7.4 T/CUMM (4-12)
[2017-08-17 06:21] LABS: Calcium 6.9 MG/DL (8.5-10.1); Osmolality,Calculated 316.4 MOS/KG (273-304); Potassium 4.8 MMOL/L (3.5-5.1)
[2017-08-17] MEDS ORDERED: SODIUM CHLORIDE 0.9% 1,000 ML IV PRN (06:47)
[2017-08-17] MEDS ORDERED: FUROSEMIDE 40 MG/4 ML VIAL IV ONE (06:51)
[2017-08-17] MEDS: INSULIN LISPRO 100 UNIT/ML SUBCUT SCH ×3 (08:57→21:39)
[2017-08-17] MEDS: INSULIN REGULAR 100 UNIT/ML SUBCUT SCH ×4 (08:57→21:39)
[2017-08-17] MEDS: methylPREDNISolone SOD SUC 40 MG/1 ML VIAL IV SCH ×2 (08:58→21:37)
[2017-08-17] MEDS: FUROSEMIDE 100 MG/10 ML VIAL IV SCH ×2 (09:00→16:45)
[2017-08-17] MEDS: GLIMEPIRIDE 2 MG TABLET PO SCH ×2 (09:05→21:37)
[2017-08-17] MEDS: NYSTATIN 500,000 UNIT/5 ML UDCUP SWISH/SWAL SCH ×4 (09:05→21:37)
[2017-08-17] MEDS: DOCUSATE/SENNA 50-8.6 MG TABLET PO SCH ×2 (09:06→21:38)
[2017-08-17] MEDS: guaiFENesin/DM ER 600-30 MG TABLET PO SCH ×2 (09:06→21:37)
[2017-08-17] MEDS: PANTOPRAZOLE 40 MG TABLET PO SCH (09:06)
[2017-08-17] MEDS: CETIRIZINE 10 MG TABLET PO SCH (09:06)
[2017-08-17] MEDS: CARVEDILOL 6.25 MG TABLET PO SCH ×2 (09:06→21:40)
[2017-08-17] MEDS: MOMETASONE/FORMOTEROL 200-5 INHALER 8.8 GM INH SCH ×2 (09:06→21:41)
[2017-08-17] MEDS: metOLazone 5 MG TABLET PO SCH (09:06)
[2017-08-17] MEDS: SIMVASTATIN 20 MG TABLET PO SCH (21:37)
[2017-08-17] MEDS: ENOXAPARIN 30 MG/0.3 ML SYRINGE SUBCUT SCH (21:45)
[2017-08-18] MEDS: ALBUTEROL/IPRATROPIUM 3 ML NEB RESP TX SCH ×4 (00:31→21:08)
[2017-08-18 05:05] LABS: Basophils % 0.1 % (0.0-0.8); Hemoglobin 7.3 GM/DL (12.0-16.0); Immature Granulocytes % 1.1 %; Immature Granulocytes Absolute 0.09 #; Lymphocytes # 0.6 10*3/uL (1.4-4.0); Lymphocytes % 7.6 % (21.3-54.2); Mean Corpuscular HGB Conc 31.7 GM/DL (32-36); Mean Corpuscular Hemoglobin 31 PG (27-34); Mean Corpuscular Volume 96.2 FL (87-102); Monocytes # 0.2 10*3/uL (0.11-0.8); Monocytes % 2.3 % (1.7-12.7); NRBC # 0.02 10*3/uL; Neutrophils # 7.1 10*3/uL (1.4-7.4); Neutrophils % 88.9 % (38.7-73.9); Platelet Count 158 T/CUMM (130-400); Red Blood Count 2.39 MC/CUMM (3.8-5.5); Red Cell Distribution Width 15.2 % (9.3-17.3)
[2017-08-18 05:40] LABS: Albumin 2.4 G/DL (3.4-5.0); Bilirubin,Total 0.7 MG/DL (0.2-1.0); Calcium 6.2 MG/DL (8.5-10.1); Osmolality,Calculated 311.4 MOS/KG (273-304); Potassium 4.8 MMOL/L (3.5-5.1); Total Protein 5.5 G/DL (6.4-8.3)
[2017-08-18] MEDS: GLIMEPIRIDE 2 MG TABLET PO SCH ×2 (08:38→21:15)
[2017-08-18] MEDS: INSULIN REGULAR 100 UNIT/ML SUBCUT SCH ×4 (08:38→22:06)
[2017-08-18] MEDS ORDERED: EPOETIN ALFA 2,000 UNIT/1 ML VIAL IV PRN (09:18)
[2017-08-18] MEDS ORDERED: SODIUM BICARBONATE 50 MEQ/50 ML SYRINGE IV ONE (09:22)
[2017-08-18] MEDS ORDERED: IRON SUCROSE 100 MG/5 ML VIAL IV SCH (09:30)
[2017-08-18] MEDS: INSULIN LISPRO 100 UNIT/ML SUBCUT SCH ×3 (09:55→21:17)
[2017-08-18] MEDS ORDERED: CLINDAMYCIN INJ 900 MG in PREMIX 1 EACH IV ONE (10:00)
[2017-08-18] MEDS: methylPREDNISolone SOD SUC 40 MG/1 ML VIAL IV SCH ×2 (10:01→21:18)
[2017-08-18] MEDS: FUROSEMIDE 100 MG/10 ML VIAL IV SCH ×2 (10:01→17:17)
[2017-08-18] MEDS: NYSTATIN 500,000 UNIT/5 ML UDCUP SWISH/SWAL SCH ×4 (10:02→21:15)
[2017-08-18] MEDS: MOMETASONE/FORMOTEROL 200-5 INHALER 8.8 GM INH SCH ×2 (10:06→22:03)
[2017-08-18] MEDS: PANTOPRAZOLE 40 MG TABLET PO SCH (10:06)
[2017-08-18] MEDS: DOCUSATE/SENNA 50-8.6 MG TABLET PO SCH ×2 (10:06→21:15)
[2017-08-18] MEDS: CETIRIZINE 10 MG TABLET PO SCH (10:07)
[2017-08-18] MEDS: metOLazone 5 MG TABLET PO SCH (10:07)
[2017-08-18] MEDS: guaiFENesin/DM ER 600-30 MG TABLET PO SCH ×2 (10:08→21:15)
[2017-08-18] MEDS: CARVEDILOL 6.25 MG TABLET PO SCH ×2 (10:08→21:15)
[2017-08-18] MEDS ORDERED: LIDOCAINE 1% 50 ML VIAL ONE (10:24)
[2017-08-18] MEDS ORDERED: HEPARIN 5,000 UNIT/1 ML VIAL ONE (10:24)
[2017-08-18] MEDS ORDERED: BUPIVACAINE MPF 0.25% 30 ML VIAL ONE (10:24)
[2017-08-18] MEDS ORDERED: CLINDAMYCIN INJ 50 ML IV ONE (10:32)
[2017-08-18] MEDS: SODIUM CHLORIDE 0.9% 250 ML IV SCH (10:51)
[2017-08-18] MEDS ORDERED: PROPOFOL 200 MG/20 ML VIAL IV ONE (11:45)
[2017-08-18] MEDS ORDERED: MIDAZOLAM 2 MG/2 ML VIAL ONE (11:45)
[2017-08-18] MEDS ORDERED: fentaNYL 100 MCG/2 ML VIAL ONE (11:46)
[2017-08-18] MEDS ORDERED: ONDANSETRON 4 MG/2 ML VIAL ONE (11:46)
[2017-08-18] MEDS ORDERED: SODIUM CHLORIDE 0.9% 100 ML IV ONE (11:46)
[2017-08-18] MEDS ORDERED: GLUCAGON 1 MG VIAL IM PRN (15:39)
[2017-08-18] MEDS ORDERED: DEXTROSE 50% 25 GM/50 ML VIAL IV PRN (15:39)
[2017-08-18] MEDS: SIMVASTATIN 20 MG TABLET PO SCH (21:15)
[2017-08-18] MEDS: ENOXAPARIN 30 MG/0.3 ML SYRINGE SUBCUT SCH (21:17)
[2017-08-18] MEDS: LEVOFLOXACIN INJ 500 MG in PREMIX 1 EACH IV SCH (23:32)
[2017-08-19] MEDS: ALBUTEROL/IPRATROPIUM 3 ML NEB RESP TX SCH ×4 (00:24→19:35)
[2017-08-19] MEDS: SODIUM CHLORIDE 0.9% 250 ML IV SCH ×2 (01:18→11:31)
[2017-08-19] MEDS: INSULIN LISPRO 100 UNIT/ML SUBCUT SCH ×3 (09:18→22:04)
[2017-08-19] MEDS: INSULIN REGULAR 100 UNIT/ML SUBCUT SCH ×4 (09:19→22:47)
[2017-08-19] MEDS: methylPREDNISolone SOD SUC 40 MG/1 ML VIAL IV SCH (09:20)
[2017-08-19] MEDS: FUROSEMIDE 100 MG/10 ML VIAL IV SCH (09:20)
[2017-08-19] MEDS: GLIMEPIRIDE 2 MG TABLET PO SCH ×2 (09:21→22:02)
[2017-08-19] MEDS: guaiFENesin/DM ER 600-30 MG TABLET PO SCH ×2 (09:21→22:03)
[2017-08-19] MEDS: NYSTATIN 500,000 UNIT/5 ML UDCUP SWISH/SWAL SCH ×4 (09:21→22:03)
[2017-08-19] MEDS: metOLazone 5 MG TABLET PO SCH (09:22)
[2017-08-19] MEDS: PANTOPRAZOLE 40 MG TABLET PO SCH (09:22)
[2017-08-19] MEDS: CETIRIZINE 10 MG TABLET PO SCH (09:22)
[2017-08-19] MEDS: DOCUSATE/SENNA 50-8.6 MG TABLET PO SCH ×2 (09:22→22:04)
[2017-08-19] MEDS: MOMETASONE/FORMOTEROL 200-5 INHALER 8.8 GM INH SCH ×2 (09:23→22:48)
[2017-08-19] MEDS: CARVEDILOL 6.25 MG TABLET PO SCH ×2 (09:23→22:04)
[2017-08-19] MEDS: SIMVASTATIN 20 MG TABLET PO SCH (22:04)
[2017-08-19] MEDS: ENOXAPARIN 30 MG/0.3 ML SYRINGE SUBCUT SCH (22:04)
[2017-08-20] MEDS: ALBUTEROL/IPRATROPIUM 3 ML NEB RESP TX SCH ×2 (00:17→07:19)
[2017-08-20] MEDS: SODIUM CHLORIDE 0.9% 250 ML IV SCH (01:47)
[2017-08-20 05:25] LABS: Basophils % 0.1 % (0.0-0.8); Eosinophils # 0.2 10*3/uL (0.0-0.87); Eosinophils % 2.3 % (0.00-10.9); Hematocrit 24.1 VOL% (35.7-47.0); Hemoglobin 7.9 GM/DL (12.0-16.0); Immature Granulocytes % 1.8 %; Immature Granulocytes Absolute 0.19 #; Lymphocytes % 19.6 % (21.3-54.2); Mean Corpuscular HGB Conc 32.8 GM/DL (32-36); Mean Corpuscular Hemoglobin 31 PG (27-34); Mean Corpuscular Volume 93.8 FL (87-102); Monocytes # 0.9 10*3/uL (0.11-0.8); Monocytes % 8.6 % (1.7-12.7); NRBC # 0.11 10*3/uL; Neutrophils % 67.6 % (38.7-73.9); Platelet Count 176 T/CUMM (130-400); Red Blood Count 2.57 MC/CUMM (3.8-5.5); Red Cell Distribution Width 15.5 % (9.3-17.3); White Blood Count 10.3 T/CUMM (4-12)
[2017-08-20 05:58] LABS: Calcium 6.5 MG/DL (8.5-10.1); Osmolality,Calculated 287.7 MOS/KG (273-304); Potassium 4.1 MMOL/L (3.5-5.1)
[2017-08-20] MEDS ORDERED: methylPREDNISolone SOD SUC 40 MG/1 ML VIAL IV SCH (09:00)
[2017-08-20] MEDS: INSULIN LISPRO 100 UNIT/ML SUBCUT SCH (09:30)
[2017-08-20] MEDS: INSULIN REGULAR 100 UNIT/ML SUBCUT SCH ×2 (09:30→11:48)
[2017-08-20] MEDS: NYSTATIN 500,000 UNIT/5 ML UDCUP SWISH/SWAL SCH ×2 (10:17→13:11)
[2017-08-20] MEDS ORDERED: HEPARIN 10,000 UNIT/10 ML VIAL IV PRN (10:31)
[2017-08-20 13:09] VITALS: BP 157/76
[2017-08-20] MEDS: GLIMEPIRIDE 2 MG TABLET PO SCH (13:11)
[2017-08-20] MEDS: guaiFENesin/DM ER 600-30 MG TABLET PO SCH (13:12)
[2017-08-20] MEDS: MOMETASONE/FORMOTEROL 200-5 INHALER 8.8 GM INH SCH (13:12)
[2017-08-20] MEDS: CETIRIZINE 10 MG TABLET PO SCH (13:12)
[2017-08-20] MEDS: DOCUSATE/SENNA 50-8.6 MG TABLET PO SCH (13:12)
[2017-08-20] MEDS: PANTOPRAZOLE 40 MG TABLET PO SCH (13:12)
[2017-08-20] MEDS: CARVEDILOL 6.25 MG TABLET PO SCH (13:12)
== END 2017-08-20 15:00 | disposition home or self-care (01) | DRG 682 ==
LOC: SUATTDRO 18:40 → N.TELEN 19:20
PROVIDERS: ADMIT Internal Medicine; ATTEND Internal Medicine

== ENCOUNTER 2018-08-17 16:32 | Inpatient (IN) ==
[2018-08-17] MEDS ORDERED: GLUCAGON 1 MG VIAL IM PRN ×2 (20:16)
[2018-08-17] MEDS ORDERED: DEXTROSE 50% 25 GM/50 ML VIAL IV PRN ×2 (20:16)
[2018-08-17] MEDS ORDERED: ONDANSETRON 4 MG/2 ML VIAL IV PRN (20:16)
[2018-08-17] MEDS: INSULIN LISPRO 100 UNIT/ML SUBCUT SCH (22:06)
[2018-08-17] MEDS: PIPERACILLIN/TAZOBACTAM 3,375 MG in SODIUM CHLORIDE 0.9% 100 ML IV SCH (22:22)
[2018-08-17] MEDS: ACETAMINOPHEN 500 MG TABLET PO SCH (23:50)
[2018-08-18] MEDS: ACETAMINOPHEN 500 MG TABLET PO SCH ×3 (05:36→16:59)
[2018-08-18 06:56] LABS: Basophils % 0.3 % (0.0-0.8); Eosinophils # 0.9 10*3/uL (0.0-0.87); Eosinophils % 10.5 % (0.00-10.9); Hematocrit 28.6 VOL% (35.7-47.0); Hemoglobin 8.9 GM/DL (12.0-16.0); Immature Granulocytes % 0.2 %; Immature Granulocytes Absolute 0.02 #; Lymphocytes # 1.6 10*3/uL (1.4-4.0); Lymphocytes % 18.9 % (21.3-54.2); Mean Corpuscular HGB Conc 31.1 GM/DL (32-36); Mean Corpuscular Volume 98.3 FL (87-102); Mean Platelet Volume 9.9 FL (9.6-12.0); Monocytes % 7.6 % (1.7-12.7); Neutrophils % 62.5 % (38.7-73.9); Platelet Count 178 T/CUMM (130-400); Red Blood Count 2.91 MC/CUMM (3.8-5.5); Red Cell Distribution Width 15.3 % (9.3-17.3); White Blood Count 8.7 T/CUMM (4-12)
[2018-08-18 08:04] LABS: Calcium 8.1 MG/DL (8.5-10.1); Osmolality,Calculated 307.3 MOS/KG (273-304); Risk Ratio 2.61; Thyroid Stimulating Hormone 1.21 uIU/ml (0.358-3.74); VLDL CHOLESTEROL 29.2 MG/DL
[2018-08-18] MEDS: INSULIN LISPRO 100 UNIT/ML SUBCUT SCH ×4 (08:43→21:50)
[2018-08-18] MEDS: PIPERACILLIN/TAZOBACTAM 3,375 MG in SODIUM CHLORIDE 0.9% 100 ML IV SCH ×3 (08:44→22:40)
[2018-08-18] MEDS: PANTOPRAZOLE 40 MG VIAL IV SCH (08:45)
[2018-08-18] MEDS ORDERED: LIDOCAINE 1% 20 ML VIAL ONE (11:57)
[2018-08-18] MEDS ORDERED: DEXTROSE 50% 25 GM/50 ML VIAL IV ONE (12:37)
[2018-08-18] MEDS ORDERED: PROPOFOL 200 MG/20 ML VIAL IV ONE (13:41)
[2018-08-18] MEDS ORDERED: ePHEDrine 50 MG/ML AMP ONE (13:42)
[2018-08-18] MEDS ORDERED: ONDANSETRON 4 MG/2 ML VIAL ONE (13:42)
[2018-08-18] MEDS ORDERED: DEXAMETHASONE 4 MG/1 ML VIAL ONE (13:42)
[2018-08-18] MEDS ORDERED: fentaNYL 100 MCG/2 ML VIAL ONE (13:42)
[2018-08-18] MEDS ORDERED: SEVOFLURANE 1 UNIT/15 MINUTE INH ONE (13:42)
[2018-08-18] MEDS ORDERED: MIDAZOLAM 2 MG/2 ML VIAL ONE (13:42)
[2018-08-18] MEDS ORDERED: ACETAMINOPHEN 1,000 MG/100 ML VIAL IV ONE (13:43)
[2018-08-18] MEDS ORDERED: PHENYLEPHRINE 1 MG/10 ML SYRINGE IV ONE (13:43)
[2018-08-18] MEDS ORDERED: SODIUM CHLORIDE 0.9% 250 ML IV ONE (13:43)
[2018-08-19] MEDS: ACETAMINOPHEN 500 MG TABLET PO SCH ×4 (01:07→17:57)
[2018-08-19 06:56] LABS: Basophils % 0.1 % (0.0-0.8); Eosinophils % 0.2 % (0.00-10.9); Hematocrit 25.7 VOL% (35.7-47.0); Immature Granulocytes % 0.5 %; Immature Granulocytes Absolute 0.04 #; Lymphocytes % 11.3 % (21.3-54.2); Mean Corpuscular HGB Conc 31.1 GM/DL (32-36); Mean Corpuscular Volume 98.8 FL (87-102); Mean Platelet Volume 10.2 FL (9.6-12.0); Monocytes % 6.7 % (1.7-12.7); Neutrophils % 81.2 % (38.7-73.9); Platelet Count 174 T/CUMM (130-400); White Blood Count 8.7 T/CUMM (4-12)
[2018-08-19] MEDS: INSULIN LISPRO 100 UNIT/ML SUBCUT SCH ×4 (08:27→22:07)
[2018-08-19] MEDS ORDERED: HEPARIN 10,000 UNIT/10 ML VIAL IV PRN (11:30)
[2018-08-19] MEDS ORDERED: VANCOMYCIN INJ 500 MG in SODIUM CHLORIDE 0.9% 100 ML IV PRN (13:27)
[2018-08-19] MEDS ORDERED: VANCOMYCIN INJ 1,500 MG in SODIUM CHLORIDE 0.9% 500 ML IV ONE (13:30)
[2018-08-19] MEDS: PIPERACILLIN/TAZOBACTAM 3,375 MG in SODIUM CHLORIDE 0.9% 100 ML IV SCH ×2 (13:44→22:06)
[2018-08-19] MEDS ORDERED: diphenhydrAMINE CAP 25 MG CAPSULE PO ONE (14:00)
[2018-08-19] MEDS: PANTOPRAZOLE 40 MG VIAL IV SCH (16:01)
[2018-08-20] MEDS: ACETAMINOPHEN 500 MG TABLET PO SCH ×5 (00:45→23:27)
[2018-08-20] MEDS: diphenhydrAMINE CAP 25 MG CAPSULE PO PRN ×2 (02:35→21:32)
[2018-08-20 06:01] LABS: Basophils % 0.4 % (0.0-0.8); Eosinophils # 0.7 10*3/uL (0.0-0.87); Eosinophils % 9.6 % (0.00-10.9); Hemoglobin 8.1 GM/DL (12.0-16.0); Immature Granulocytes % 0.1 %; Immature Granulocytes Absolute 0.01 #; Lymphocytes # 2.1 10*3/uL (1.4-4.0); Lymphocytes % 27.2 % (21.3-54.2); Mean Corpuscular HGB Conc 31.2 GM/DL (32-36); Mean Corpuscular Volume 98.1 FL (87-102); Mean Platelet Volume 10.5 FL (9.6-12.0); Monocytes % 8.2 % (1.7-12.7); Neutrophils % 54.5 % (38.7-73.9); Platelet Count 176 T/CUMM (130-400); Red Blood Count 2.65 MC/CUMM (3.8-5.5); Red Cell Distribution Width 15.2 % (9.3-17.3); White Blood Count 7.7 T/CUMM (4-12)
[2018-08-20 06:30] LABS: Calcium 7.8 MG/DL (8.5-10.1); Osmolality,Calculated 286.8 MOS/KG (273-304)
[2018-08-20] MEDS: INSULIN LISPRO 100 UNIT/ML SUBCUT SCH ×4 (08:11→22:28)
[2018-08-20] MEDS: PIPERACILLIN/TAZOBACTAM 3,375 MG in SODIUM CHLORIDE 0.9% 100 ML IV SCH ×2 (08:16→21:26)
[2018-08-20] MEDS: PANTOPRAZOLE 40 MG VIAL IV SCH (08:16)
[2018-08-20] MEDS ORDERED: ASPIRIN EC 325 MG TABLET PO SCH ×2 (10:30→11:58)
[2018-08-20 11:11] LABS: Apearance,Urine CLOUDY (Clear); Bilirubin,Urine Negative (Negative); Blood, Urine Negative (Negative); Glucose,Urine (UA) 50 mg/dL (Negative); Ketones,Urine Negative (Negative); Nitrite,Urine Negative (Negative); Protein,Urine 100 MG/DL; RBC,Urine 11 /HPF (0-4); Squamous Epithelial Cell,Urine Many /HPF (0-10); Urine Color Yellow (Yellow); Urine Specific Gravity 1.016 (1.001-1.035); Urine Urobilinogen < 2.0 EU/DL (0.2-1.0); WBC,Urine 62 /HPF (0-6)
[2018-08-20] MEDS: DOCUSATE SODIUM 100 MG CAPSULE PO SCH ×2 (12:49→21:26)
[2018-08-20] MEDS ORDERED: diphenhydrAMINE CAP 25 MG CAPSULE PO PRN (16:30)
[2018-08-21] MEDS: ACETAMINOPHEN 500 MG TABLET PO SCH ×2 (06:17→13:14)
[2018-08-21] MEDS: INSULIN LISPRO 100 UNIT/ML SUBCUT SCH ×2 (10:22→11:35)
[2018-08-21] MEDS: PANTOPRAZOLE 40 MG VIAL IV SCH (10:23)
[2018-08-21] MEDS: DOCUSATE SODIUM 100 MG CAPSULE PO SCH (10:23)
[2018-08-21] MEDS: PIPERACILLIN/TAZOBACTAM 3,375 MG in SODIUM CHLORIDE 0.9% 100 ML IV SCH (10:23)
[2018-08-21 13:05] VITALS: BP 145/83
== END 2018-08-21 15:35 | disposition home health service (06) | DRG 463 ==
LOC: N.5E 18:50 → SUATTDRO 18:50
PROVIDERS: ADMIT Internal Medicine; ATTEND Internal Medicine

== ENCOUNTER 2018-12-17 21:50 | Observation (INO) ==
[2018-12-17 22:51] LABS: Basophils % 0.2 % (0.0-0.8); Eosinophils % 0.1 % (0.00-10.9); Hemoglobin 9.8 GM/DL (12.0-16.0); Immature Granulocytes % 0.5 %; Immature Granulocytes Absolute 0.06 #; Lymphocytes # 0.5 10*3/uL (1.4-4.0); Lymphocytes % 3.7 % (21.3-54.2); Mean Corpuscular HGB Conc 31.6 GM/DL (32-36); Mean Corpuscular Volume 101.6 FL (87-102); Mean Platelet Volume 11.1 FL (9.6-12.0); Monocytes % 5.7 % (1.7-12.7); NRBC # 0.04 10*3/uL; Neutrophils % 89.8 % (38.7-73.9); Platelet Count 155 T/CUMM (130-400); Red Blood Count 3.05 MC/CUMM (3.8-5.5); Red Cell Distribution Width 17.5 % (9.3-17.3); White Blood Count 12.6 T/CUMM (4-12)
[2018-12-17 23:10] LABS: Albumin 2.8 G/DL (3.4-5.0); Bilirubin,Total 0.6 MG/DL (0.2-1.0); Calcium 8.1 MG/DL (8.5-10.1); Total Protein 7.2 G/DL (6.4-8.3)
[2018-12-17 23:43] LABS: Band Neutrophils 1 % (0-10); Hypochromasia 2+; Lymphocytes 6 % (20-55); Nucleated Red Blood Cells 1 (0-5); Ovalocytes Few; Platelet Estimate Adequate; Segmented Neutrophils 88 % (50-85); Total Cells Counted 100
[2018-12-17 23:44] LABS: Anisocytosis 1+; Macrocytosis 1+
[2018-12-18] MEDS ORDERED: ONDANSETRON 4 MG/2 ML VIAL IV ONE (00:40)
[2018-12-18] MEDS ORDERED: MORPHINE 4 MG/1 ML VIAL IV STA (00:40)
[2018-12-18] MEDS ORDERED: ONDANSETRON 4 MG/2 ML VIAL IV PRN (01:52)
[2018-12-18] MEDS ORDERED: diphenhydrAMINE CAP 25 MG CAPSULE PO PRN (01:52)
[2018-12-18] MEDS ORDERED: ACETAMINOPHEN 325 MG TABLET PO PRN (01:52)
[2018-12-18] MEDS ORDERED: NICOTINE 21 MG/24 HR PATCH TRANSDERM PRN (01:52)
[2018-12-18] MEDS ORDERED: PROMETHAZINE 25 MG/1 ML VIAL IM PRN (01:52)
[2018-12-18] MEDS ORDERED: MORPHINE 4 MG/1 ML VIAL IV PRN (01:52)
[2018-12-18] MEDS: cefTRIAXone 2,000 MG in SYRINGE 1 EACH IV SCH ×2 (03:18→16:21)
[2018-12-18] MEDS: SODIUM CHLORIDE 0.9% 1,000 ML IV SCH ×2 (03:19→17:38)
[2018-12-18] MEDS ORDERED: GLUCAGON 1 MG VIAL IM PRN (04:30)
[2018-12-18] MEDS ORDERED: DEXTROSE 50% 25 GM/50 ML VIAL IV PRN ×2 (04:30→09:55)
[2018-12-18] MEDS: INSULIN REGULAR 100 UNIT/ML SUBCUT SCH ×3 (05:51→18:45)
[2018-12-18 06:19] LABS: Basophils % 0.2 % (0.0-0.8); Eosinophils % 0.2 % (0.00-10.9); Hematocrit 27.7 VOL% (35.7-47.0); Hemoglobin 8.7 GM/DL (12.0-16.0); Immature Granulocytes % 0.5 %; Immature Granulocytes Absolute 0.07 #; Lymphocytes # 0.7 10*3/uL (1.4-4.0); Lymphocytes % 5.3 % (21.3-54.2); Mean Corpuscular HGB Conc 31.4 GM/DL (32-36); Mean Corpuscular Volume 102.2 FL (87-102); Monocytes % 7.8 % (1.7-12.7); NRBC # 0.05 10*3/uL; Platelet Count 156 T/CUMM (130-400); Red Blood Count 2.71 MC/CUMM (3.8-5.5); Red Cell Distribution Width 17.5 % (9.3-17.3); White Blood Count 12.8 T/CUMM (4-12)
[2018-12-18 06:45] LABS: Albumin 2.7 G/DL (3.4-5.0); Bilirubin,Total 0.5 MG/DL (0.2-1.0); Calcium 7.9 MG/DL (8.5-10.1); Total Protein 6.6 G/DL (6.4-8.3)
[2018-12-18 07:49] LABS: INR 1.1; PT Patient Result 11.6 SECS (9.6-12.2)
[2018-12-18] MEDS ORDERED: LINEZOLID INJ 600 MG in PREMIX 1 EACH IV SCH (09:00)
[2018-12-18] MEDS ORDERED: VASOPRESSIN 20 UNITS/ML VIAL ONE (09:57)
[2018-12-18 10:59] LABS: Appearance,CSF Clear; Red Blood Cell,CSF 316 C/CUMM; White Blood Cell,CSF < 1 C/CUMM
[2018-12-18 14:59] VITALS: BP 184/86
[2018-12-18] MEDS ORDERED: hydrALAZINE 20 MG/1 ML VIAL IV PRN (15:27)
[2018-12-18] MEDS ORDERED: AMPICILLIN INJ 1,000 MG in SODIUM CHLORIDE 0.9% 100 ML IV SCH (17:00)
== END 2018-12-18 18:35 | disposition home or self-care (01) ==
LOC: EDBD → EDUNIT# → N.EDINP 21:50 → N.ED 21:50 → N.2E 12-18 02:21
PROVIDERS: ADMIT Internal Medicine Geriatric Medicine; ATTEND Internal Medicine Geriatric Medicine

== ENCOUNTER 2019-08-16 13:09 | Inpatient (IN) ==
[2019-08-16 17:48] LABS: ABG Base Excess 4.1 MMOL/L (-2.5-2.5); ABG HCO3 28.1 MMOL/L (20-26); ABG Oxygen Saturation 99.5 % (95-100); ABG PCO2 52.2 MM HG (35-48); ABG TCO2 27.9 MMOL/L (23-27)
[2019-08-16] MEDS ORDERED: ACETAMINOPHEN 325 MG TABLET PO PRN (18:14)
[2019-08-16] MEDS ORDERED: DEXTROSE 10% 250 ML BAG IV PRN (18:14)
[2019-08-16] MEDS ORDERED: ONDANSETRON 4 MG/2 ML VIAL IV PRN (18:14)
[2019-08-16] MEDS ORDERED: GLUCAGON 1 MG VIAL IM PRN (18:14)
[2019-08-16 22:29] LABS: Basophils % 0.2 % (0.0-0.8); Eosinophils # 0.1 10*3/uL (0.0-0.87); Hematocrit 28.1 VOL% (35.7-47.0); Immature Granulocytes % 0.9 %; Immature Granulocytes Absolute 0.04 #; Lymphocytes # 0.3 10*3/uL (1.4-4.0); Mean Corpuscular Volume 101.4 FL (87-102); Mean Platelet Volume 11.2 FL (9.6-12.0); Monocytes % 8.8 % (1.7-12.7); NRBC # 0.02 10*3/uL; Neutrophils % 81.1 % (38.7-73.9); Red Blood Count 2.77 MC/CUMM (3.8-5.5); Red Cell Distribution Width 18.3 % (9.3-17.3); White Blood Count 4.6 T/CUMM (4-12)
[2019-08-16 23:17] LABS: Bilirubin,Total 0.5 MG/DL (0.2-1.0); Calcium 7.9 MG/DL (8.5-10.1); Osmolality,Calculated 272.7 MOS/KG (273-304); Total Protein 6.8 G/DL (6.4-8.3)
[2019-08-16 23:38] LABS: Platelet Count 78 T/CUMM (130-400)
[2019-08-17 04:10] LABS: Burr Cells 2+; Hypochromasia 2+; Platelet Estimate Decreased; Target Cells Few
[2019-08-17] MEDS ORDERED: PANTOPRAZOLE 40 MG TABLET PO SCH (09:00)
[2019-08-17] MEDS: cefTRIAXone 1,000 MG in SYRINGE 1 EACH IV SCH (09:57)
[2019-08-17] MEDS: AZITHROMYCIN 250 MG TABLET PO SCH (09:57)
[2019-08-17 10:46] LABS: Basophils % 0.1 % (0.0-0.8); Eosinophils % 0.2 % (0.00-10.9); Hematocrit 29.6 VOL% (35.7-47.0); Hemoglobin 9.6 GM/DL (12.0-16.0); Immature Granulocytes % 0.6 %; Immature Granulocytes Absolute 0.09 #; Lymphocytes # 0.3 10*3/uL (1.4-4.0); Lymphocytes % 2.2 % (21.3-54.2); Mean Corpuscular HGB Conc 32.4 GM/DL (32-36); Mean Corpuscular Volume 99.7 FL (87-102); Mean Platelet Volume 11.1 FL (9.6-12.0); Monocytes % 3.2 % (1.7-12.7); Neutrophils % 93.7 % (38.7-73.9); Red Blood Count 2.97 MC/CUMM (3.8-5.5); White Blood Count 15.2 T/CUMM (4-12)
[2019-08-17 10:49] LABS: Platelet Count 93 T/CUMM (130-400)
[2019-08-17 11:02] LABS: Band Neutrophils 5 % (0-10); Lymphocytes 2 % (20-55); Platelet Estimate Decreased; Segmented Neutrophils 92 % (50-85); Total Cells Counted 100
[2019-08-17 11:03] LABS: Hypochromasia Slight
[2019-08-17 11:04] LABS: Ovalocytes Slight
[2019-08-17 11:05] LABS: Albumin 1.9 G/DL (3.4-5.0); Bilirubin,Total 0.7 MG/DL (0.2-1.0); Calcium 8.4 MG/DL (8.5-10.1); Osmolality,Calculated 269.9 MOS/KG (273-304)
[2019-08-17] MEDS ORDERED: SCOPOLAMINE 1.5 MG PATCH TRANSDERM SCH (15:00)
[2019-08-17] MEDS: busPIRone 5 MG TABLET PEG SCH ×2 (15:15→21:20)
[2019-08-17] MEDS: ENOXAPARIN 30 MG/0.3 ML SYRINGE SUBCUT SCH (21:20)
[2019-08-17] MEDS: carvediloL 25 MG TABLET PEG SCH (21:20)
[2019-08-18 07:24] LABS: Eosinophils % 0.3 % (0.00-10.9); Hematocrit 26.6 VOL% (35.7-47.0); Hemoglobin 8.7 GM/DL (12.0-16.0); Immature Granulocytes % 0.5 %; Immature Granulocytes Absolute 0.05 #; Lymphocytes # 0.2 10*3/uL (1.4-4.0); Lymphocytes % 2.6 % (21.3-54.2); Mean Corpuscular HGB Conc 32.7 GM/DL (32-36); Mean Corpuscular Volume 97.4 FL (87-102); Mean Platelet Volume 11.7 FL (9.6-12.0); Monocytes % 3.6 % (1.7-12.7); NRBC # 0.02 10*3/uL; Red Blood Count 2.73 MC/CUMM (3.8-5.5); Red Cell Distribution Width 18.1 % (9.3-17.3); White Blood Count 9.4 T/CUMM (4-12)
[2019-08-18 07:26] LABS: Platelet Count 90 T/CUMM (130-400)
[2019-08-18 07:50] LABS: Band Neutrophils 2 % (0-10); Hypochromasia 1+; Lymphocytes 3 % (20-55); Ovalocytes Slight; Platelet Estimate Decreased; Segmented Neutrophils 88 % (50-85); Total Cells Counted 100
[2019-08-18 08:52] LABS: Albumin 1.7 G/DL (3.4-5.0); Bilirubin,Total 0.8 MG/DL (0.2-1.0); Calcium 7.7 MG/DL (8.5-10.1); Osmolality,Calculated 272.4 MOS/KG (273-304); Total Protein 6.5 G/DL (6.4-8.3)
[2019-08-18] MEDS ORDERED: FAMOTIDINE 20 MG TABLET PEG SCH (09:00)
[2019-08-18] MEDS: busPIRone 5 MG TABLET PEG SCH ×3 (09:06→20:47)
[2019-08-18] MEDS: AZITHROMYCIN 250 MG TABLET PO SCH (09:06)
[2019-08-18] MEDS: cefTRIAXone 1,000 MG in SYRINGE 1 EACH IV SCH (09:06)
[2019-08-18] MEDS: carvediloL 25 MG TABLET PEG SCH ×2 (09:07→20:47)
[2019-08-18] MEDS ORDERED: LOSARTAN 50 MG TABLET PEG SCH (10:00)
[2019-08-18] MEDS: ENOXAPARIN 30 MG/0.3 ML SYRINGE SUBCUT SCH (20:47)
[2019-08-19 02:09] VITALS: BP 186/82
[2019-08-19] MEDS ORDERED: ONDANSETRON 4 MG/2 ML VIAL ONE (14:28)
== END 2019-08-19 02:33 | disposition expired | DRG 177 ==
LOC: N.2W 16:21 → SUATTDRO 16:21
PROVIDERS: ADMIT Internal Medicine; ATTEND Internal Medicine